=== PATIENT | male | born 1930 | race Hispanic/Latino ===

== ENCOUNTER 2017-01-06 13:52 | Outpatient (CLI) | payer MEDICARE ==
--- NOTE | 2017-01-09 12:32 | PET Report ---
PET/CT:01/06/17 13:52:00 CLINICAL: Renal cell carcinoma. Status post left nephrectomy in 2001. RADIOPHARMACEUTICAL: 13.3mCi F18-FDG. COMPARISON: None. TECHNIQUE- Following intravenous injection of F-18 FDG and an approximately 60 minute uptake period, CT and PET images from the mid skull to the upper thighs were acquired with the patient in the fasted state. No contrast was administered. The CT protocol used for this PET CT study is designed for attenuation correction and anatomic localization of PET abnormalities. This medical oncology physician CT is not desired to produce and cannot replace, [id number]-nb-[id number]-art diagnostic CT scans with specific imaging protocols for different body parts and indications. Plasma glucose at the time of this test: 179g/dl. The standardized uptake values (SUV) are normalized to patient body weight and indicate the highest activity concentration (SUV max) in a given disease site. FINDINGS: Brain--Physiologic FDG uptake in the visualized regions of the brain. Neck--Physiologic FDG uptake . Chest--Physiologic FDG uptake in mediastinal blood pool and myocardium. Lungs--Numerous non-FDG avid noncalcified multilobar lung nodules. The largest is in the left lower lobe and measures 2.3 cm. Additional left lower lobe nodules measure 1.7, 1.5 and 1.0 cm. A right lower lobe nodule measures 1.4 cm. Right middle lobe nodules measure 1.5 and 1.2 cm. A right upper lobe nodule measures 2.2 cm. Several additional smaller nodules throughout the lungs. Partial atelectasis of the left lower lobe. Pleura/pericardium--Multiple FDG avid pleural-based masses of the left hemithorax. The largest is in the left fourth interspace and measures 4.6 x 3.7 cm with SUV 5.4. Pleural-based mass of the left third interspace measures 4.2 x 2.2 cm with SUV 5.4. A small left pleural effusion and non-FDG avid thickened pleura of the left lower lobe. Thoracic nodes--No lymphadenopathy and no abnormal uptake in the mediastinum or luis. Calcified subcarinal lymph nodes. A mass of FDG avid left retrocrural lymph nodes with SUV 5.3. The mass measures at least 6.7 a 2.9 cm. Hepatobiliary--No abnormal uptake. Liver background SUV mean, as a reference for comparing FDG studies, is compared to on the last exam. No liver mass. Spleen--No abnormal uptake. Pancreas--No abnormal uptake. Adrenal Glands--No abnormal uptake. Kidneys/Ureters/Bladder--No abnormal uptake. Status post left nephrectomy. Abdominopelvic Nodes--An enlarged FDG avid right retrocaval lymph node at the level of the portal vein measures 2.7 x 2.9 cm with SUV 3.0. An FDG avid right psoas mass measures approximately 3.5 x 3.1 cm with SUV 3.3. Several additional enlarged abdominal lymph nodes with no FDG uptake. Several FDG avid left iliac lymph nodes. Bowel/Peritoneum/Mesentery--No abnormal uptake. Physiologic uptake in small and large bowel. Pelvic organs--No abnormal uptake. Bones/Soft Tissues--No abnormal uptake. No suspicious bone lesions. Other findings: Status post cholecystectomy. IMPRESSION- Metastatic renal cell carcinoma with multilobar bilateral pulmonary metastases, numerous left pleural based metastases, and multiple retroperitoneal abdominal and pelvic sol metastases. No evidence of hepatic or skeletal metastasis. Small left pleural effusion and partial left lower lobe atelectasis.
== END 2017-01-06 13:53 | disposition home or self-care (01) ==
LOC: PET 13:52
PROVIDERS: ATTEND Internal Medicine Hematology & Oncology
DX: C78.2 Secondary malignant neoplasm of pleura (principal); C78.02 Secondary malignant neoplasm of left lung; C78.01 Secondary malignant neoplasm of right lung; C78.6 Secondary malignant neoplasm of retroperitoneum and peritoneum; C79.89 Secondary malignant neoplasm of other specified sites; C79.02 Secondary malignant neoplasm of left kidney and renal pelvis; J90 Pleural effusion, not elsewhere classified; J98.11 Atelectasis; R91.8 Other nonspecific abnormal finding of lung field; Z90.49 Acquired absence of other specified parts of digestive tract; Z90.5 Acquired absence of kidney; R59.9 Enlarged lymph nodes, unspecified; Z79.899 Other long term (current) drug therapy
CPT/HCPCS: 78815; 82962; A9552

== ENCOUNTER 2017-02-11 06:54 | Day surgery (SDC) | payer MEDICARE ==
[2017-02-11] MEDS ORDERED: ANCEF/STERILE WATER 2 GM/20 ML IV NR (08:00)
[2017-02-11] MEDS ORDERED: NACL 0.9% 1000 ML 1,000 ML ONE (08:25)
[2017-02-11] MEDS ORDERED: XYLOCAINE 1% 20 mL ONE (08:27)
[2017-02-11] MEDS ORDERED: MARCAINE 0.25% INFILTRATI ONE ×2 (08:28→09:51)
[2017-02-11] MEDS ORDERED: HEPARIN 10,000 UNITS/10 ML ONE (08:28)
[2017-02-11] MEDS ORDERED: NACL 0.9% 250ML 250 ML ONE (08:28)
[2017-02-11 08:33] LABS: Eosinophils % (Auto) 2.3 % (0.0-4.3); Hemoglobin 11.7 gm/dl (11.8-15.2); Mean Corpuscular HGB Conc 33 % (32-34); Mean Corpuscular Hemoglobin 28 pg (28-32); Mean Corpuscular Volume 86 fl (84-94); Platelet Count 373 K/mm3 (140-440); Red Blood Count 4.19 M/mm3 (3.65-5.03); Red Cell Distribution Width 14.7 % (13.2-15.2); White Blood Count 8.4 K/mm3 (4.5-11.0)
[2017-02-11 08:47] LABS: Anion Gap 17 mmol/L; BUN/Creatinine Ratio 25; Blood Urea Nitrogen 28 mg/dL (9-20); Calcium 8.6 mg/dL (8.4-10.2); Carbon Dioxide 28 mmol/L (22-30); Chloride 98.3 mmol/L (98-107); Glucose 166 mg/dL (75-100); Potassium 4.3 mmol/L (3.6-5.0); Sodium 139 mmol/L (137-145)
--- NOTE | 2017-02-11 08:51 | XRay Report ---
Chest 2 views: History: Surgery history of lung cancer. Findings: Moderate left pleural effusion obscuring left heart border. Cardiomegaly. Trachea is midline. Circumscribed large nodules left lung suggestive of primary lung cancer or metastatic disease. Impression: Findings as detailed above.
--- NOTE | 2017-02-11 08:53 | Anesthesia Consultation ---
<ZANDERYORDANShireen WEATHERS - Last Filed: 02/11/17 08:49> Anesthesia Consult and Med Hx Date of service: 02/11/17 - Airway Anesthetic Teeth Evaluation: Good ROM Head & Neck: Adequate Mental/Hyoid Distance: Adequate Mallampati Class: Class II Intubation Access Assessment: Probably Good - Pulmonary Exam CTA: Yes (distant) - Cardiac Exam Cardiac Exam: RRR - Pre-Operative Health Status ASA Pre-Surgery Classification: ASA3 Proposed Anesthetic Plan: General, MAC - Pulmonary Hx Smoking: Yes (HEAVY SMOKER FROM [id number]) Hx Respiratory Symptoms: Yes (drain in left lung) - Cardiovascular System Hx Hypertension: Yes (OVER 30Y) - Central Nervous System Hx Back Pain: Yes Hx Psychiatric Problems: No - Endocrine Hx Non-Insulin Dependent Diabetes: Yes Hx Hypothyroidism: Yes - Other Systems Hx Alcohol Use: No Hx Substance Use: No Hx Cancer: Yes (Left nephrectomy(cancer) 2002; lung cancer) <AYAN GRAHAM - Last Filed: 02/11/17 08:58> Anesthesia Consult and Med Hx - Airway Anesthetic Teeth Evaluation: Good ROM Head & Neck: Adequate Mental/Hyoid Distance: Adequate Mallampati Class: Class II Intubation Access Assessment: Probably Good - Pulmonary Exam CTA: Yes - Cardiac Exam Cardiac Exam: RRR - Pre-Operative Health Status Proposed Anesthetic Plan: MAC
--- NOTE | 2017-02-11 08:59 | Anesthesia Day of Surgery ---
Anesthesia Day of Surgery - Day of Surgery Patient Examined: Yes Patient H&P Reviewed: Yes Patient is NPO: Yes
[2017-02-11] MEDS ORDERED: NACL 0.9% 1000 ML 1,000 ML IV SCH (09:00)
[2017-02-11] MEDS ORDERED: DIPRIVAN 10 MG/ML IV ONE (09:05)
[2017-02-11] MEDS ORDERED: DILAUDID ONE (09:06)
[2017-02-11] MEDS ORDERED: XYLOCAINE MPF 2% ONE (09:06)
[2017-02-11] MEDS ORDERED: PEPCID IV NR (09:30)
[2017-02-11] MEDS ORDERED: ePHEDrine SULFATE ONE (09:40)
[2017-02-11] MEDS ORDERED: HEPARIN IV ONE (09:50)
[2017-02-11] MEDS ORDERED: NACL 0.9% IR ONE (09:50)
[2017-02-11] MEDS ORDERED: XYLOCAINE 1% 20 mL INFILTRATI ONE (09:51)
[2017-02-11] MEDS ORDERED: NACL 0.9% 250ML IV ONE (09:51)
[2017-02-11] MEDS ORDERED: ZOFRAN ONE (09:53)
--- NOTE | 2017-02-11 10:32 | Discharge Summary ---
Short Stay Discharge Plan Activity: advance as tolerated Diet: regular Wound: per your surgeon's advice Durable Medical Equipment Needed Upon Discharge: Cane Follow up with: KENIA MARTINEZ MD [Primary Care Provider] - 7 Days
[2017-02-11] MEDS ORDERED: NORCO 5/325 PO PRN (11:00)
--- NOTE | 2017-02-11 11:17 | XRay Report ---
Single view chest: History: ORIF placement. Findings: Tip of the Wmxfap-r-Ustw is in the right atrium. No pneumothorax. Left pleural effusion. Nodules left lung. Impression: Tip of left Ugeslq-r-Tweb in right atrium.
[2017-02-11 12:41] VITALS: BP 112/54
--- NOTE | 2017-02-11 13:32 | Operative Report ---
PREOPERATIVE DIAGNOSIS: Carcinoma of the left lung for insertion of subcutaneous port as per recommendation of Dr. Johnson. This man apparently was found to have some fluid in his chest after having some chest pain and it showed that he had a mass in the left lung area requiring a biopsy and that showed evidence of carcinoma. So, he is due to have chemotherapy. He has very poor veins and he had only 2-course of chemotherapy. He is going to have some more up to 6. So, I was asked to have a subcutaneous port inserted on him. ANESTHESIA: Local standby used for that purpose about 10 mL of local anesthetic. DESCRIPTION OF PROCEDURE: With the patient in supine position and after draping the patient in the same area in the left upper chest, he was put in the Trendelenburg position. With a needle, I was able to go into the vein and that had good backflow of venous blood. At that point, a J-wire was inserted via with the use of the C-arm. Then, I removed the needle and then an incision was performed at the insertion site making a pocket to accommodate the system that was assembled together in the usual fashion. The system was then irrigated. I was able to, with the use of the dilator, to go into the chest with the use of the guidewire in the usual fashion. Then, I removed the dilator, through which I was able to introduce the catheter that went nicely all the way to the superior vena cava area. Then, the dilator sheath was peeled in the usual fashion. I had good backflow of venous blood to the port percutaneously. The pocket as mentioned above was created already and had purse-string sutures tacking the port to the pectoralis fascia. I was very much satisfied. Then, I closed the wound using for that purpose interrupted stitches of 3-0 Vicryl and 4-0 for the skin. I had good and excellent backflow of blood via the port percutaneously, going to check with the chest x-ray as well. I believe the man can go home. I am going to talk to his family and then he can start the chemotherapy any time. JOB# [id number] HERNANDO/SOO WELSH
--- NOTE | 2017-02-12 02:11 | Discharge Summary ---
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 HOSPITAL COURSE: This male was seen in my office yesterday. He is a patient of Dr. Johnson, who apparently transferred him to my service to install a subcutaneous port on him. This was done as an outpatient under local standby anesthesia. He did well in the recovery room and he was discharged home, to be seen in my office in 1 week or 10 days, to call me and to see Dr. Johnson and he may start his chemo anytime. JOB# [id number] HERNANDO/SOO
== END 2017-02-11 12:53 | disposition home or self-care (01) ==
LOC: OR 06:54
PROVIDERS: ATTEND Surgery
DX: C34.92 Malignant neoplasm of unspecified part of left bronchus or lung (principal); J90 Pleural effusion, not elsewhere classified; J44.9 Chronic obstructive pulmonary disease, unspecified; I10 Essential (primary) hypertension; E03.9 Hypothyroidism, unspecified; E11.9 Type 2 diabetes mellitus without complications; M47.9 Spondylosis, unspecified; M19.90 Unspecified osteoarthritis, unspecified site; Z90.5 Acquired absence of kidney; Z79.84 Long term (current) use of oral hypoglycemic drugs; Z79.899 Other long term (current) drug therapy; Z85.53 Personal history of malignant neoplasm of renal pelvis; Z87.891 Personal history of nicotine dependence
CPT/HCPCS: 36415; 36561; 71010; 71020; 80048; 82962; 85025; C1788; J0690; J1170; J1644; J2405; J2704; J7030; J7050